=== PATIENT | male | born 1990 | race Caucasian/White ===

== ENCOUNTER 2018-05-23 09:27 | Emergency (ER) | payer OTHER ==
[2018-05-23 09:43] VITALS: BP 129/89
[2018-05-23 09:58] LABS: BILIRUBIN,URINE NEGATIVE (NEGATIVE); GLUCOSE, URINE (UA) NEGATIVE (NEGATIVE); KETONES,URINE (UA) NEGATIVE (NEGATIVE); LEUKOCYTE ESTERASE, URINE NEGATIVE (NEGATIVE); NITRITE,URINE NEGATIVE (NEGATIVE); OCCULT BLOOD,URINE NEGATIVE (NEGATIVE); PROTEIN,URINE NEGATIVE (NEGATIVE); UROBILINOGEN,URINE 0.2 (NORMAL) E.U./dL (NORMAL)
[2018-05-23 10:01] LABS: CLARITY,URINE CLEAR (CLEAR)
[2018-05-23 10:15] LABS: BASOPHILS % (AUTO) 0.4 %; EOSINOPHILS # (AUTO) 0.1 10^3/uL (0.0-0.7); LYMPHOCYTES # (AUTO) 1.5 10^3/uL (1.5-3.5); LYMPHOCYTES % (AUTO) 21.7 %; MEAN CORPUSCULAR HEMOGLOBIN 30.9 pg (27.0-31.0); MEAN CORPUSCULAR HGB CONC 35.2 g/dL (32.0-36.0); MEAN PLATELET VOLUME 7.7 fL (7.4-11.4); MONOCYTES # (AUTO) 0.4 10^3/uL (0.0-1.0); MONOCYTES % (AUTO) 5.6 %; NEUTROPHILS # (AUTO) 5.1 10^3/uL (1.5-6.6); NEUTROPHILS % (AUTO) 71.3 %; PLT - PLATELET COUNT 218 10^3/uL (130-450); RED BLOOD COUNT 4.86 10^6/uL (4.70-6.10); RED CELL DISTRIBUTION WIDTH 13.3 % (12.0-15.0); WHITE BLOOD COUNT 7.1 x10^3/uL (4.8-10.8)
[2018-05-23 10:29] LABS: ALBUMIN 4.7 g/dL (3.2-5.5); ALBUMIN/GLOBULIN RATIO 1.4 (1.0-2.2); BILIRUBIN,TOTAL 1.7 mg/dL (0.2-1.0); CALCIUM 9.5 mg/dL (8.5-10.3); CREATININE 0.9 mg/dL (0.6-1.2); TOTAL PROTEIN 8.1 g/dL (6.7-8.2)
[2018-05-23] MEDS ORDERED: ONDANSETRON ODT 4 MG TABLET TL STA (12:05)
[2018-05-23] MEDS ORDERED: DOCUSATE SODIUM 100 MG CAPSULE PO STA (12:06)
[2018-05-23] MEDS ORDERED: MAG HYDROX/AL HYDROX/SIMETH 30 ML UDC PO STA (12:06)
[2018-05-23] MEDS ORDERED: KETOROLAC 30 MG/ML VIAL IM STA (12:06)
--- NOTE | 2018-05-23 12:35 | ED Physician Documentation ---
PD HPI ABD PAIN - Stated complaint Stated Complaint: STOMACH PX/NAUESA - Chief complaint Chief Complaint: Abd Pain - History obtained from History obtained from: Patient - History of Present Illness Timing - onset: How many days ago (2) Timing - details: Gradual onset, Still present Quality: Aching, Dull, Pain Location: RUQ, Epigastric, Periumbilical Radiation: No: Chest, Lower back, Upper back Improved by: No: Eating Worsened by: Eating, Position (better lying to side.), Palpation Associated symptoms: Nausea, Vomiting. No: Fever, Hematemesis, Diarrhea, Hematochezia, Weight loss Similar symptoms before: Has not had sx before Recently seen: Not recently seen Review of Systems Constitutional: reports: Chills, Myalgias. denies: Fever Nose: denies: Rhinorrhea / runny nose, Congestion Throat: reports: Sore throat, Swollen tonsils Cardiac: reports: Palpitations. denies: Chest pain / pressure Respiratory: denies: Dyspnea, Cough GI: reports: Abdominal Pain, Constipation. denies: Nausea, Vomiting : denies: Dysuria, Frequency Neurologic: denies: Generalized weakness, Focal weakness, Numbness Psychiatric: denies: Delusions Endocrine: denies: Polyuria PD PAST MEDICAL HISTORY - Past Medical History Cardiovascular: None Respiratory: None Neuro: None Endocrine/Autoimmune: None GI: None - Present Medications Home Medications: Ambulatory Orders Medication Instructions Recorded Confirmed No Known Home Medications 05/23/18 05/23/18 - Allergies Allergies/Adverse Reactions: Allergies Allergy/AdvReac Type Severity Reaction Status Date / Time No Known Drug Allergies Allergy Verified 05/23/18 12:37 PD ED PE NORMAL - Vitals Vital signs reviewed: Yes - General General: Alert and oriented X 3, Well developed/nourished - HEENT HEENT: Atraumatic, Pharynx benign - Neck Neck: Supple, no meningeal sign, No adenopathy - Cardiac Cardiac: RRR, No murmur - Respiratory Respiratory: Clear bilaterally Results - Vitals Vitals: Oxygen O2 Source Room air - Labs Labs: Laboratory Tests 05/23/18 05/23/18 05/23/18 09:45 10:08 10:08 WBC 7.1 RBC 4.86 Hgb 15.0 Hct 42.7 MCV 88.0 MCH 30.9 MCHC 35.2 RDW 13.3 Plt Count 218 MPV 7.7 Neut # (Auto) 5.1 Lymph # (Auto) 1.5 [place] # (Auto) 0.4 Eos # (Auto) 0.1 Baso # (Auto) 0.0 Absolute Nucleated RBC 0.00 Nucleated RBC % 0.0 Sodium 139 Potassium 4.3 Chloride 101 Carbon Dioxide 30 Anion Gap 8.0 BUN 18 Creatinine 0.9 Estimated GFR (MDRD) 102 Glucose 110 H Calcium 9.5 Total Bilirubin 1.7 H AST 19 ALT 38 Alkaline Phosphatase 40 L Total Protein 8.1 Albumin 4.7 Globulin 3.4 Albumin/Globulin Ratio 1.4 Lipase 26 Urine Color YELLOW Urine Clarity CLEAR Urine pH 8.0 H Ur Specific [place] 1.020 Urine Protein NEGATIVE Urine Glucose (UA) NEGATIVE Urine Ketones NEGATIVE Urine Occult Blood NEGATIVE Urine Nitrite NEGATIVE Urine Bilirubin NEGATIVE Urine Urobilinogen 0.2 (NORMAL) Ur Leukocyte Esterase NEGATIVE Ur Microscopic Review NOT INDICATED Urine Culture Comments NOT INDICATED Departure - Departure Disposition: 01 Home, Self Care Clinical Impression: Abdominal pain Qualifiers: Abdominal location: upper abdomen, unspecified Qualified Code(s): R10.10 - Upper abdominal pain, unspecified Condition: Stable Record reviewed to determine appropriate education?: Yes Instructions: ED Abdominal Pain Unkn Cause Follow-Up: SIDNEY Campos [Provider Group] Comments: Drink lots of fluids. There are no signs of gallbladder pancreas or liver problems. Presume its your intestines irritated perhaps from a viral illness or could be from constipation. Drink lots of fluids today and tomorrow. Use stool softener twice daily for the next few days and then once daily for a week. Naproxen anti-inflammatory for pain twice daily for the next several days. Add Tylenol if needed. Ondansetron if needed for nausea. Follow-up with your primary if not better into tomorrow and return sooner if you have worsening pain, fever, more localized pain particularly to the lower abdomen or any other concerns. Forms: Activity restrictions Discharge Date/Time: 05/23/18 12:47
== END 2018-05-23 12:47 | disposition home or self-care (01) ==
LOC: ED 09:27
DX: R10.10 Upper abdominal pain, unspecified (principal)
CPT/HCPCS: 36415; 80053; 81003; 83690; 85025; 96372; 99283; A9270; Q0162; 81001; 87086